=== PATIENT | male | born 1975 | race Caucasian/White ===

== ENCOUNTER 2019-03-16 20:37 | Emergency (ER) | payer SELFPAY ==
[~2019-03-16] VITALS: Ht 180.3 cm; Wt 96.8 kg
[2019-03-16 20:40] VITALS: BP 153/89
--- NOTE | 2019-03-16 20:43 | NUR ---
TO LOBBY A/W BED AMBULATORY
--- NOTE | 2019-03-16 21:24 | NUR ---
PT AMBULATED TO BED 11
--- NOTE | 2019-03-16 21:46 | NUR ---
BIB SELF C/O CHEST PRESSURE 5/10 BEGINNING AT 1999. NO PROVOKING EVENTS. NO SOB. LUNG SOUNDS CLEAR IN BILAT LOBES. PT REPORTS FEELING THIS PAIN A WEEK AGO WHILE [place] [facility], IT WAS RELIEVED BY REST. PATIENT [id number]. NO PMH, NKA
[2019-03-16] MEDS ORDERED: ASPIRIN 81 MG TAB.CHEW PO ONE (22:35)
[2019-03-16 23:32] LABS: BASOPHILS % (AUTO) 0.6 % (0.0-2.0); EOSINOPHILS # (AUTO) 0.1 K/uL (0-0.4); HEMATOCRIT 46.3 % (36-52); HEMOGLOBIN 15.1 g/dL (12.0-18.0); LYMPHOCYTES # (AUTO) 1.4 K/uL (2.0-11.5); LYMPHOCYTES % (AUTO) 24.9 % (20.5-51.1); MEAN CORPUSCULAR HEMOGLOBIN 30 pg (27-31); MEAN CORPUSCULAR HGB CONC 33 g/dL (33-37); MEAN CORPUSCULAR VOLUME 90.8 fL (80-94); MONOCYTES # (AUTO) 0.4 K/uL (0.8-1.0); MONOCYTES % (AUTO) 6.2 % (1.7-9.3); NEUTROPHILS # (AUTO) 3.9 K/uL (1.8-7.7); NEUTROPHILS % (AUTO) 67.3 % (42.2-75.2); PLATELET COUNT (AUTO) 292 K/uL (140-450); RED BLOOD CELL COUNT(AUTO) 5.09 MIL/uL (4.20-6.10); RED CELL DISTRIBUTION WIDTH 13.4 % (11.6-13.7); WHITE BLOOD COUNT (AUTO) 5.8 K/uL (4.8-10.8)
[2019-03-16 23:48] LABS: ANION GAP 11.3 (8-16); CARBON DIOXIDE 31.6 mmol/L (21-32); CREATININE 0.9 mg/dL (0.7-1.3); POTASSIUM 3.9 mmol/L (3.5-5.1)
[2019-03-16 23:50] LABS: ALBUMIN 3.9 g/dL (3.4-5.0); TOTAL BILIRUBIN 0.3 mg/dL (0.0-1.0)
[2019-03-17 00:07] VITALS: BP 122/80
== END 2019-03-17 00:07 | disposition home or self-care (01) ==
LOC: MED 20:37
DX: R07.89 Other chest pain (principal); M54.2 Cervicalgia; R20.2 Paresthesia of skin
CPT/HCPCS: 36415; 71045; 80053; 84484; 85025; 99284; Q0092; 93005